=== PATIENT | female | born 1965 | race Caucasian/White ===

== ENCOUNTER → 2016-04-15 | Day surgery (SDC) | payer OTHER ==
[~2016-04-15] VITALS: Ht 162.6 cm; Wt 95.3 kg
[~2016-04-15] MED LIST: BIRTH CONTROL PILLS; OMEPRAZOLE20 M2 PO
--- NOTE | 2016-04-15 13:01 | Operative Report ---
Operative/Inv Procedure Report Surgery Date: 04/15/16 Name of Procedure: D&C hysteroscopy Pre-Operative Diagnosis: Fibroids Post-Operative Diagnosis: Same Estimated Blood Loss: 50ml to 100ml Surgeon/Insulation Manager: YANET PASCUAL MD Anesthesia: moderate sedation Operative/Procedure Note Note: Patient was taken the operating room placed prone position after adequate anesthesia patient placed in dorsolithotomy position vagina prepped draped fashion bladder was catheterized examination under anesthesia performed a single -tooth tenaculum placed on the Intralipid cervix gentle downward traction cervix was dilated 29 Hegar to allow for the insertion of the hysteroscope under direct visualization using gas hysteroscopy was performed the lining had a fibroid hysteroscope was removed sharp curettage of the endometrial lining performed sharp curettage and cervical lining performed 2 specimen sent to pathology hemostasis was apparent on since removed from the vagina patient was returned spine position awakened from anesthesia and transferred recovery room awake and alert with counts correct
== END ==
LOC: STS 03:00
DX: D25.9 Leiomyoma of uterus, unspecified (principal); K21.9 Gastro-esophageal reflux disease without esophagitis; F17.200 Nicotine dependence, unspecified, uncomplicated
CPT/HCPCS: 88305; J0131; J2250